=== PATIENT | male | born 1990 | race Caucasian/White ===

== ENCOUNTER 2018-03-03 17:05 | Emergency (ER) | payer SELFPAY ==
[2018-03-03 17:06] VITALS: BP 145/91; PULSE 97; RESP 17; TEMP 36.9; O2SAT 96; BMI 35.4
--- NOTE | 2018-03-03 17:23 | ED.VISSUMM ---
- ER Visit Summary Date of Service: 03/03/18 Chief Complaint: Drainage, redness left eye History of Present Illness: The patient is a 28 M who presents because of redness, drainage and irritation left eye. He was working on his car yesterday. He states just fell when he was under the car working on the brakes. There is no history of metal pounding on metal. He denies any blurred vision, loss of vision, double vision or any other symptoms. Physical Examination: Vital signs are remarkable for a blood pressure 145/91. Visual acuity is 20/25 left 20/20 right 20/20 both eyes. There is injection of the conjunctivae and sclera on the left. There is a green drainage noted. Pupils are equal round reactive. Extraocular muscles are intact. There is no abdomen of the lid, lacrimal apparatus or lashes. There is no evidence of a dacryocystitis. Slit-lamp exam was performed. The exam is limited secondary to the fact that there is a national shortage of floor seen. There is no obvious corneal abnormality. There is no photophobia to direct or consensual light. There is no hyphema, flare or cells anterior chamber. There is no pain with movement and there is no limitation of extraocular movement. Test Results: Visual acuity as documented Emergency Department Course and Treatment: Ciprofloxacin ophthalmic drop and dispensed bile Treatment Plan: Antibiotic drop and follow-up with Dr. Gavino Miramontes Disposition: Discharged to home Impression: Conjunctivitis left eye This note was generated with [employer] dictation software. It may contain incorrect words, spelling, and punctuation that were not noted in review of the chart prior to signing ED Disposition - Plan for ED Patient: Disposition: Home or Assisted Living Chief Complaint: Eye Problem Instructions: ED Conjunctivitis Bacterial Referrals: Care Physician,No Primary [Primary Care Provider] - Gavino Miramontes MD [STAFF PHYSICIAN] - 2 Days Additional Instructions: Instill 1-2 drops of ciprofloxacin ophthalmic drops every 2 hours while awake for the next 48 hours then every 4 hours while awake for the next 3-5 days
[2018-03-03] MEDS: Ciprofloxacin 0.3% 2.5ml Bottle 2 DRP LEFT EYE (17:39)
[2018-03-03 17:40] VITALS: PULSE 92; RESP 14; O2SAT 98
== END 2018-03-03 17:41 | disposition home or self-care (01) ==
PROVIDERS: Emergency Provider Emergency Medicine
DX: H10.9 Unspecified conjunctivitis (principal)
CPT/HCPCS: 99283

== ENCOUNTER 2023-09-29 20:23 | Emergency (ER) | payer OTHER, SELFPAY ==
[2023-09-29 20:23] VITALS: BP 143/100; PULSE 102; RESP 16; TEMP 36.6; O2SAT 100; BMI 43.0
--- NOTE | 2023-09-29 20:29 | EX.ED.UPPERE ---
HPI History of Present Illness Chief Complaint: Laceration Informant: patient and spouse/S.O. Narrative Narrative: [id number] presents laceration to his right hand in the webspace between third and fourth finger while work on his truck. Tetanus unknown. No significant bleeding. No anticoagulation medicines. No paresthesias or any loss of function. Tetanus Immunization: Unknown [facility] Medical History (Updated 09/29/23 @ 20:[address] Mo Rosales, DO) Hypersomnia Obesity LAQUITA (obstructive sleep apnea) Pneumonia Rheumatic fever Home Medications azithromycin 250 mg tablet See Rx Instructions PO .COMPLEX #6 tabs 07/20/23 [Rx Last Taken Unknown] Allergy/AdvReac Type Severity Reaction Status Date / Time No Known Allergies Allergy Verified 09/29/23 20:23 Family History Grandmother Diabetes Alzheimer disease Grandfather Diabetes Heart disease Surgical History [place] teeth extracted Social History Smoking Status: Never smoker Smokeless tobacco user: chewing tobacco Electronic Cigarette Use: not used second hand exposure: No alcohol intake: current alcohol intake frequency: holidays/special occasions only Alcohol type: beer and hard liquor substance use type: does not use ROS ROS ED Constitutional Constitutional ED: Denies chills, fever(s) or sweats Eyes Eyes: Denies change in vision ENT ENT ED: Denies dysphagia or sore throat Cardiovascular Cardiovascular: Denies chest pain, leg edema, palpitations or racing heartbeat Respiratory/Chest Respiratory/Chest: Denies cough, dyspnea or dyspnea on exertion Gastrointestinal Gastrointestinal: Denies abdominal pain, diarrhea, nausea or vomiting Genitourinary Genitourinary ED: Denies dysuria, hematuria or urinary frequency Musculoskeletal Musculoskeletal: Denies back pain, extremity pain or neck pain Integumentary Reports wounds; Denies rash Neurologic Neurologic: Denies headache(s), paresthesias or weakness EXAM Physical Exam Const Vital Signs: 09/29/23 20:23 Temperature 97.8 F Temperature Source Temporal Pulse Rate 102 H Respiratory Rate 16 Blood Pressure 143/100 H Blood Pressure Mean 114 Pulse Ox 100 Positive well nourished and well developed General Appearance ED: well developed and NAD HEENT Reports moist mucous membranes normocephalic and atraumatic Eyes PERRL, EOMs intact bilaterally and conjunctivae normal General Eye ED: Yes normal appearance of both eyes Neck no lymphadenopathy and supple General: Negative for tenderness Chest Wall Chest: Negative for tenderness Resp normal respiratory effort and normal air movement Effort and Inspection: symmetric chest movement; Negative for respiratory distress Cardio regular rate, regular rhythm and no murmurs Peripheral Pulses: pulses 2+ throughout GI normal to inspection, nondistended, normoactive bowel sounds and non-tender Palpation: Negative for guarding or rebound tenderness present Back/Spine no CVA tenderness and no thoracic nor lumbar tenderness Extremity Extremity Narrative: Right hand: 2 cm laceration right the webspace at the base of the middle finger, there was debris inside the wound, subcu exposure no tendon involvement. Full range of motion of the digit. There is no active bleeding. Normal sensation distally. General Extremety ED: Yes tenderness; Negative for edema General Extremity: Negative for edema Neuro oriented x3 and no sensory deficits noted Sensorium / Orientation: awake and alert Skin no rashes or lesions noted and no wounds MDM MDM MDM Narrative Medical decision making narrative: Interventions / MDM: Differential diagnosis: Hand laceration Diagnosis considered but do not suspect: Tendon injury however clinically tendon intact. My EKG interpretation: N/A Imaging independently reviewed and interpreted by myself: N/A External documents reviewed: N/A Test considered but not ordered:N/A ED course: Laceration webspace of the hand full range of motion of the digits no paresthesias. Laceration repaired wound care discussed, AlumaFoam splint splint provided to help with immobilization and healing. Dressing twice at home with the patient. Tetanus updated. All questions were answered. Procedure note: Verbal consent. Normal sterile conditions. 2 cc lidocaine 1% used for local analgesia the wound. Copious normal saline washing initial moist Q-tip to remove debris, saline with syringe was used for flushing. Total of 3, 5-0 nylon in simple interrupted sutures placed with good approximation of the wound. Antibiotic ointment and dressings placed by myself. Patient tolerated procedure well. Re-evaluation: stable Disposition discussed with patient/family/significant other: Patient and significant other. Case discussed with consulting clinician: N/A This note was generated with [employer] software. It may contain incorrect words, spelling, and punctuation that were not noted in checking the note before signing. Discharge Plan Triage Chief Complaint: Laceration ED Provider: Mo Rosales Dx/Rx/DC Orders Clinical Impression: Tetanus toxoid vaccination administered at current visit, Laceration of hand, right Instructions: ED Laceration, Hand: All Closures Prescriptions: No Action azithromycin 250 mg tablet See Rx Instructions PO .COMPLEX Qty: 6 0RF Rx Instructions: take 500 mg today (day 1), then 250 mg for 4 days (days 2-5) PO Primary Care Provider: Care Physician,No Primary Referrals: Marty Jiménez MD [Med Staff - [facility] [employer]] - 10-14 Days suture removal Care Physician,No Primary [Primary Care Provider] - Activity Restrictions/Additional Instructions: 3 sutures placed to right hand. Wound care as discussed. Use finger splint to avoid over bending to allow healing follow-up in 10 to 14 days for reevaluation and suture removal.. Disposition Disposition: Home, Self Care Discharge Date/Time: 09/29/23 21:12
[2023-09-29] MEDS: Diphth,Pertuss(Acell),Tet Vac 0.5 ML Vial IM (20:36)
[2023-09-29] MEDS: Lidocaine 1% (20 ml mdv) 20 ML Vial INFILT (20:36)
== END 2023-09-29 21:12 | disposition home or self-care (01) ==
LOC: ED 21:03
PROVIDERS: Emergency Provider Emergency Medicine; Visit Provider Emergency Medicine
DX: S61.411A Laceration without foreign body of right hand, initial encounter (principal); Y92.812 Truck as the place of occurrence of the external cause; W26.8XXA Contact with other sharp object(s), not elsewhere classified, initial encounter; Y93.89 Activity, other specified; F17.220 Nicotine dependence, chewing tobacco, uncomplicated; Z23 Encounter for immunization
CPT/HCPCS: 12001; 90471; 90715; 99284

== ENCOUNTER → 2024-12-11 | Outpatient (CLI) | payer OTHER, SELFPAY ==
--- NOTE | 2024-12-11 | VAS_PTH ---
PATIENT: JIGAR BONE LOC: [facility] U#:[id number] AGE/SX: 34/M ROOM: RE12/11/[address]: Dr. Keanu De Los Santos MD : 1990 BED: DIS: 12/11/2024 SPEC #: [id number] RECD: 12/11/24 11:45 STATUS: DYLON BRIGHT #: [id number] LELAND: 12/11/24 00:[address]: Keanu De Los Santos DEPT: SURGICAL PATHOLOGY RECD BY: Phil Guzman ENTERED: 12/11/24 12:01 SP TYPE: VAS OTHR DR: Keyonna Primary Care Phys Tissues: A - Vas deferens, NOS B - Vas deferens, NOS Procedures: Surgery Specimen Level II HEADER OPERATION: Bilateral partial vasectomy PRE-OP DIAGNOSIS: Sterilization TISSUE SUBMITTED: A- Right vas deferens, B- Left vas deferens MICROSCOPIC DIAGNOSIS A. Right vas deferens, partial vasectomy: Completely transected segment of vas deferens, no pathologic diagnosis. B. Left vas deferens, partial vasectomy: Completely transected segment of vas deferens, no pathologic diagnosis. CATHY: 12/12/2024 MICROSCOPIC DESCRIPTION Slides are reviewed. GROSS DESCRIPTION A - Received is one container designated Right vas deferens. The specimen consists of a tubular segment of le soft tissue measuring 0.6 cm in length and 0.2 cm in diameter. The specimen is sectioned and submitted entirely in one cassette. B - Received is one container designated Left vas deferens. The specimen consists of a tubular segment of le soft tissue measuring 1 cm in length and 0.2 cm in diameter. The specimen is sectioned and submitted entirely in one cassette. / SJ: 12/11/2024 TC:[address] [facility]: [id number] x2
== END | disposition home or self-care (01) ==
LOC: LABSPEC 11:49
PROVIDERS: Referring Provider Surgery; Visit Provider Surgery
DX: Z30.2 Encounter for sterilization (principal)
CPT/HCPCS: 88302

== ENCOUNTER 2025-02-16 10:06 | Outpatient (CLI) | payer OTHER, SELFPAY ==
[2025-02-16 11:17] LABS: Semen Analysis Post Vas PRELIMINARY PRESENT; Semi Quantitative RARE
[2025-02-18 13:20] LABS: Pathologist Review Reviewed
== END 2025-02-16 23:59 | disposition home or self-care (01) ==
LOC: LABSPEC 10:10
PROVIDERS: Referring Provider Surgery; Visit Provider Surgery
DX: Z30.09 Encounter for other general counseling and advice on contraception (principal)
CPT/HCPCS: 89321

== ENCOUNTER → 2025-04-09 | Outpatient (CLI) | payer OTHER, SELFPAY ==
--- OUTSIDE RECORDS SUMMARY | 2025-04-09 12:02 | XMS RPT_ITS | CCD ---
Author Organization [facility] Inform ion Partnership [facility] Care Team Providers Care Wood Heel Finisher Name Role Phone James Katelyn Maria Del Carmen Unavailable Unavailable James Katelyn Maria Del Carmen Unavailable Unavailable Fidel CEJA Attending Unavailable Care Physician, No Primary Primary Care Provider Unavailable Care Physician, No Primary Referring Provider Un available SHRUTHI Downs Attending Provider Keanu De Los Santos Attending Unavailable Care Physician, No Primary Primary Care Unava ilable Care Physician, No Primary Referring Unava ilable Keanu De Los Santos Attending Unavailable Keanu De Los Santos Referring Unavailable Care Physician, No Primary Primary Care Unava ilable Care Physician, No Primary Primary Care Unava ilable Keanu De Los Santos Attending Unavailable Keanu De Los Santos Referring Unavailable Keanu De Los Santos Attending Unavailable Care Physician, No Primary Primary Care Unava ilable Care Physician, No Primary Referring Unava ilable Keanu De Los Santos Attending Unavailable Care Physician, No Primary Primary Care Unava ilable Care Physician, No Primary Referring Unava ilable Medications Current Medications Medication Drug Class(es) Dates Sig (Normalized) Sig (Original) azithromycin 250 mg oral tablet (1 source) Macrolide Antimicrobial Start: 07-20-2023 Azithromycin Active 0 PO .COMPLEX July 19, 2023 11:00pm take 500 mg today (day 1), then 250 mg for 4 days (days 2-5) PO Completed/Discontinued Medications Medication Drug Class(es) Dates Sig (Normalized) Sig (Original) doxycycline hyclate 100 mg oral capsule (1 source) Tetracycline-cla ss Drug Start: 06-03-2016 End: 02-18-2018 take 100 mg by mouth twice daily Doxycycline Hyclate Discontinued 100 MG PO TWICE A DAY June 02, 2016 11:00pm February 18, 2018 10:19am predniSONE 10 mg oral tablet (1 source) Start: 07-20-2023 End: 08-01-2023 Prednisone Discontinued 10 MG PO daily 20 10July 19, 2023 11:00pm July 31, 2023 11:04pm Take 4 tabs once daily days 1-3 3 tabs once daily days 4-6 2 tabs once daily days 7-9 and 1 tab once daily days 10-12. Problems Active Problems Problem Classification Problem Date Documented Date Episodic/Chronic Acute bronchitis (2 sources) Acute bronchitis; Translations: [Acute bronchitis, unspecified] 07-20-2023 Episodic Administrative/social admission (1 source) Administrative reason for encounter; Translations: [Encounter for other administrative examinations] 12-08-2019 Episodic Bacterial infection; unspecified site (1 source) Rheumatic fever; Translations: [Rheumatic fever without heart involvement] 02-18-2018 Episodic Contraceptive and procreative management (2 sources) Encounter for other general counseling and advice on contraception; Translations: [Encounter for sterilization] Onset: 12-19-2024 Episodic Disorders of teeth and jaw (1 source) Loss of teeth due to extraction; Translations: [Partial loss of teeth, unspecified cause, unspecified class] 02-18-2018 Episodic E Codes: Natural/environment (1 source) Tick bite; Translations: [Bitten or stung by nonvenomous insect and other nonvenomous arthropods, initial encounter] 04-09-2022 Episodic Immunizations and screening for infectious disease (1 source) Tetanus toxoid vaccination given; Translations: [Encounter for immunization] 09-29-2023 Episodic Open wounds of extremities (1 source) Laceration of hand; Translations: [Laceration without foreign body of right hand, initial encounter] 09-29-2023 Episodic Other nutritional; endocrine; and metabolic disorders (3 sources) Obesity; Translations: [Obesity, unspecified] Onset: 10-27-2016 10-27-2016 Chronic Pneumonia (except that caused by tuberculosis or sexually transmitted disease) (1 source) Pneumonia; Translations: [Pneumonia, unspecified organism] 02-18-2018 Episodic Residual codes; unclassified (1 source) Hypersomnia; Translations: [Hypersomnia, unspecified] 02-18-2018 Chronic Unclassified (3 sources) Obstructive sleep apnea syndrome; Translations: [Obstructive sleep apnea (adult) (pediatric)] Onset: 2017 02-26-2017 Chronic Past or Other Problems Problem Classification Problem Date Documented Da te Episodic/Chronic Unclassified (2 sources) Hypersomnia; Translations: [Hypersomnia, unspecified] Onset: 10-27-2016 10-27-2016 Episodic Results Test Name Value Interpretation Reference Range Facility L200.0900on 02-18-2025 PATH REV Reviewed Normal [facility] Comment on above: Order Comment: CRIWILLIAM TRACIE VALUE CALLED TO DANIA BARNETT 02/16/25 1119 Ttaiana Barnett. RESULTS READ BACK BY SAME. Result Comment: RARE SPERMATAZOA SEEN. Jennifer Torres MD 02/18/2025 AMENDED REPORT 02/18/25 1319 PATH REV previously reported as: Will follow Performed By: #### L 200.0900 #### [facility] [address] [place], [address] Surgery Visit Reporton 12-19 Surgery Visit Report [facility] [address] [place] [address] OFFICE VISIT Date of Service: 12/19/24 MR#: [id number] Acct: [id number] Name: JIGAR BONE Rep #: [id number] : 1990 Provider: Dr. Keanu raines MD Age/Sex: 34/M Location: [facility] Status: Signed Intake Vital Signs 09/26/24 14:52 Height 5 ft 10 in Weight: 309 lb BMI 44.3 BP 126/76 H Blood Pressure Location Rt brachial Position Sitting Respiration 17 Pulse 108 H Pulse Source Monitor Pulse Oximetry (%) 95 Oxygen Delivery Method room air Intake Visit Reasons: VASECTOMY - Chief Complaint: vasectomy 12/11 Is patient in pain?: No Allergies No Known Allergies Allergy (Verified 12/19/24 14:29) Medications ???Medication ???Instructions ???Recorded ???Confirmed ???Type NK 12/19/24 12/19/24 History Subjective Details: Patient is doing well after vasectomy with no complaints Objective Details: Scrotum is healing well Coding Level of Care Code Global Post Op Diagnoses S/P vasectomy Z98.52 [facility] Medical History (Updated 12/19/24 @ 14:30 by Dania Barnett) Encounter for vasectomy counseling Rheumatic fever Pneumonia Hypersomnia Obesity LAQUITA (obstructive sleep apnea) Surgical History (Updated 12/19/24 @ 14:30 by Dania Barnett) S/P vasectomy [place] teeth extracted Family History Grandmother Diabetes Alzheimer disease Grandfather Diabetes Heart disease Social History Smoking Status: Never smoker Smokeless tobacco user: chewing tobacco Electronic Cigarette Use: not used second hand exposure: No alcohol intake: current alcohol intake frequency: holidays/special occasions only Alcohol type: beer and hard liquor substance use type: does not use Assessment and Plan (No Qualifiers) Assessment and Plan (1) S/P vasectomy: Status: Acute Plan: Patient doing well after vasectomy. I once again informed that he is not sterile yet. He will follow-up in 4 weeks for semen analysis. Keanu De Los Santos MD Pager: [facility] [address] [place] [address] Office: 12/19/24 1520 Date Keanu De Los Santos MD [facility] Signature: Date (if applicable) CC: Normal [facility] Surgery Specimen Level IIon 12-11-2024 Surgery Specimen Level II Patient Age/Sex Location Account Attending Physician JIGAR BONE 34/M LABSPEC [id number] Dr. Keanu De Los Santos MD Specimen: [id number] Received: 12/11/24 Status: DYLON Marcio Num: [id number] Spec Type: VAS Subm Dr: Dr. Keanu De Los Santos MD HEADER OPERATION: Bilateral partial vasectomy PRE-OP DIAGNOSIS: Sterilization TISSUE SUBMITTED: A- Right vas deferens, B- Left vas deferens MICROSCOPIC DIAGNOSIS A. Right vas deferens, partial vasectomy: Completely transected segment of vas deferens, no pathologic diagnosis. B. Left vas deferens, partial vasectomy: Completely transected segment of vas deferens, no pathologic diagnosis. SJ: 12/12/2024 MICROSCOPIC DESCRIPTION Slides are reviewed. GROSS DESCRIPTION A - Received is one container designated Right vas deferens. The specimen consists of a tubular segment of le soft tissue measuring 0.6 cm in length and 0.2 cm in diameter. The specimen is sectioned and submitted entirely in one cassette. B - Received is one container designated Left vas deferens. The specimen consists of a tubular segment of le soft tissue measuring 1 cm in length and 0.2 cm in diameter. The specimen is sectioned and submitted entirely in one cassette. / SJ:mr 12/11/2024 TC:4 CPT: 27285 x2 Patient Age/Sex Location Account Attending Physician JIGAR BONE 34/M LABSPEC [id number] Dr. Keanu De Los Santos MD Signed (signatur e on file) Dr. Darion Skelton MD 12/12/24 1108 Normal [facility] Comment on above: Performed By: #### P SUII #### [facility] [address] [place], [address] Surgery Visit Reporton 12-11 Surgery Visit Report [facility] [address] [place] [address] OFFICE VISIT Date of Service: 12/11/24 MR#: [id number] Acct: [id number] Name: JIGAR BONE Rep #: [id number] : 1990 Provider: Dr. Keanu raines MD Age/Sex: 34/M Location: [facility] Status: Signed Intake Vital Signs 09/26/24 14:52 Height 5 ft 10 in Weight: 309 lb BMI 44.3 BP 126/76 H Blood Pressure Location Rt brachial Position Sitting Respiration 17 Pulse 108 H Pulse Source Monitor Pulse Oximetry (%) 95 Oxygen Delivery Method room air Intake Visit Reasons: VASECTOMY Chief Complaint: vasectomy Immunopathologist Required: No Is patient in pain?: No Allergies No Known Allergies Allergy (Verified 12/11/24 08:16) Medications ???Medication ???Instructions ???Recorded ???Confirmed ???Type oxycodone 5 mg tablet 5 mg PO Q4H PRN pain 3 days #7 tab s 12/11/24 12/11/24 Rx Have you fallen in the past year?: No PFSH Medical History Rheumatic fever Pneumonia Hypersomnia Obesity LAQUITA (obstructive sleep apnea) Surgical History [place] teeth extracted Family History Grandmother Diabetes Alzheimer disease Grandfather Diabetes Heart disease Social History Smoking Status: Never smoker Smokeless tobacco user: chewing tobacco Electronic Cigarette Use: not used second hand exposure: No alcohol intake: current alcohol intake frequency: holidays/special occasions only Alcohol type: beer and hard liquor substance use type: does not use HPI HPI HPI: Patient is a 34-year-old male here for vasectomy for sterilization. This was discussed during his prior visit. Exam Const General: cooperative Orientation: alert and oriented x3 HENMT Head: normal to inspection Neck Neck: normal visual inspection and full ROM Chest Chest palpation inspection: normal inspection of the chest Resp Effort Inspection: normal respiratory effort Auscultation: clear to auscultation bilaterally Cardio Rate: regular rate Rhythm: regular rhythm GI Inspection: non-distended Palpation: soft and nontender Skin General: no rashes or lesions noted Neuro General: patient alert and patient oriented x3 Extrem General: full ROM Psych Appearance: grossly normal Mental Status: mental status grossly normal Office Procedures Procedure Time Out Time Out Informed consent given: Yes Consent signed: Yes Time out checklist: patient, procedure, site marked/identified, positioning of patient, supplies available, allergies confirmed and team agrees on procedure Time out staff in room: Yes Time out verified: Yes Time out date: 12/11/24 Time out time: 08:03 Vasectomy Provider Documentation Provider Documentation: Bilateral partial vasectomy Time out and informed consent was obtained. The patient was taken to the procedure room and placed supine on the table. Bilateral scrotal areas were clipper and Betadine prepped. 1% lidocaine mixed 50-50 with 0.5% Marcaine was utilized as a local anesthetic. Less than a total of 10 cc was utilized. Bilateral scrotal incisions were created. Sharp and blunt dissection was used to identify the vas deferens. A segment was cleared, the ends were crushed, and segments were excised. The ends were secured with 3-0 chromic inverted and resecured. The skin edges were approximated with simple sutures of 3-0 chromic. Topical antibiotic ointment and gauze applied. He was given activity and wound care instructions. The specimens are submitted in formalin for analysis. He is scheduled to return to my office in 1 week's time. He has been provided analgesics as prescribed. He is well aware that he has not yet cleared from utilizing other means of control. He is aware that 2 negative consecutive semen counts will be required prior to releasing him from utilizing other means of control. He is aware that this is his responsibility to complete. He has had an opportunity to ask and have questions answered. Blood loss minimal. Specimens segments of vas deferens. Complications none. Alert Neri Alert Billing: Yes Vasectomy [id number] Vasectomy Assessment and Plan Assessment and Plan (1) Encounter for vasectomy counseling: Status: Acute Plan: Patient had vasectomy in the office today. He tolerated procedure well. I was once again informing him that he is not sterile yet. He will follow-up in 1 week for postoperative visit. Postoperative instructions were given. Keanu De Los Santos MD Pager: [facility] [address] [place] [address] Outpatient Monica Wallace (more content not included)... Normal [facility] Surgery Visit Reporton 09-26 Surgery Visit Report [facility] [address] [place] [address]. [address] [place] [address] OFFICE VISIT Date of Service: 09/26/24 MR#: [id number] Acct: [id number] Name: JIGAR BONE Rep #: [id number] : 1990 Provider: Dr. Keanu raines MD Age/Sex: 34/M Location: [facility] Status: Signed Intake Vital Signs 09/29/23 20:23 09/26/24 14:52 Height 5 ft 10 in 5 ft 10 in Weight: 309 lb BMI 44.3 BP 126/76 H Blood Pressure Location Rt brachial Position Sitting Respiration 17 Pulse 108 H Pulse Source Monitor Pulse Oximetry (%) 95 Oxygen Delivery Method room air Intake Visit Reasons: SELF REFERRED VASECTOMY Chief Complaint: self referred vasectomy Allergies No Known Allergies Allergy (Verified 09/26/24 14:53) [facility] Medical History (Updated 09/26/24 @ 14:51 by Dania Barnett) Rheumatic fever Pneumonia Hypersomnia Obesity LAQUITA (obstructive sleep apnea) Surgical History [place] teeth extracted Family History Grandmother Diabetes Alzheimer disease Grandfather Diabetes Heart disease Social History Smoking Status: Never smoker Smokeless tobacco user: chewing tobacco Electronic Cigarette Use: not used second hand exposure: No alcohol intake: current alcohol intake frequency: holidays/special occasions only Alcohol type: beer and hard liquor substance use type: does not use HPI HPI HPI: They are here requesting sterilization.Patijamar barr is a 34-year-old male here for vasectomy. His accompanied him to the visit. They are both on board. ROS General General: No weight change, appetite, fatigue, colon cancer, breast cancer or weakness HEENT HEENT: No difficulty swallowing, eye injury, eye surgery, swollen glands or hoarseness Endo Endocrine: No thyroid disease, diabetes mellitus, thyroid cancer, Hair loss, heat intolerance or cold intolerance Skin Skin: No rash or changing moles Musc Musculoskeletal: No back problems, arthritis, rheumatoid arthritis, gout or joint pain Cardio Cardiovascular: No murmur, pacemaker, heart disease, atrial fibrillation, high blood pressure, heart attack, heart stent, palpitations, shortness of breat with exertion or chest pain Psych Psychiatric: No depression, anxiety or hearing voices Resp Respiratory: No shortness of breath, Yes sleep apnea, No cough, No COPD, No asthma, No emphysema and No wheezing Gastro Gastrointestinal: No abdominal pain, No nausea or vomiting, No diarrhea, No constipation, No blood in stool, No acid reflux, No hemorrhoids, No ulcers, No gallbladder problem and No black,tarry stools Kobi Hematologic: No blood thinners, No blood disorders, No bleeding, No anemia and No blood clots Neuro Neurologic: No system reviewed and no additional complaints, except as documented, No as per HPI, No abnormal gait, No abnormal hearing, No abnormal movements, No abnormal speech, No behavioral changes, No burning sensations, No confusion, No convulsions, No disequilibrium, No dizziness, No localized weakness, No frequent falls, No headache(s), No lack of coordination, No loss of vision, No memory loss, No numbness, No other visual disturbances, No radicular pain, No restless legs, No sensory deficit, No syncope, No tingling, No tremor(s), No weakness and No other Exam Const General: cooperative Orientation: alert and oriented x3 HENMT Head: normal to inspection Neck Neck: normal visual inspection and full ROM Chest Chest palpation inspection: normal inspection of the chest Resp Effort Inspection: normal respiratory effort Auscultation: clear to auscultation bilaterally Cardio Rate: regular rate Rhythm: regular rhythm GI Inspection: non-distended Palpation: soft and nontender Skin General: no rashes or lesions noted Neuro General: patient alert and patient oriented x3 Extrem General: full ROM Psych Appearance: grossly normal Mental Status: mental status grossly normal Assessment and Plan Assessment and Plan (1) Encounter for vasectomy counseling: Status: Acute Plan: I discussed bilateral partial vasectomy with the patient in detail. I discussed the procedure in detail as well as the risks of the procedure. I discussed the risks including but not limited to bleeding, infection, injury to spermatic cord, spermatocele. I discussed that this procedure is not perfect and there was a very small failure rate and I also discussed that this is a nonreversible procedure and that he would not be immediately sterile. I discussed that he would be considered sterile after two consecutive negative semen analysis tests. I recommended that the patient continue to use co (more content not included)... Normal [facility] [place]enton 03-23-2023 Consent [id number]#1.00CD:127 [facility] Registrationon 03-23-2023 Registration [id number]#1.00CD:127 [facility] In office Testingon 12-28-19 23 In office Testing [id number]#1.00CD:127 [facility] Office Visit: OSAon 02-24-20 17 Documentation of current medications (procedure) Done Invalid Interpretation Code [facility] Work Phone: Documentation of current medications (procedure) T Invalid Interpretation Code [facility] Work Phone: Tobacco smoking status NHIS Current Invalid Interpretation Code [facility] Work Phone: Tobacco use HS Never smoker Invalid Interpretation Code [facility] Work Phone: Vital Signs Date Time Vital Sign Value Performing Clinician Facility 09-29-2023 20:23-0500 Body height 177.8 cm No Primary Care Physician [facility] 09-29-2023 20:23-0500 Body mass index (BMI) [Ratio] 43 kg/m2 No Primary Care Physician [facility] 09-29-2023 20:23-0500 Body temperature 97.8 [degF] No Primary Care Physician [facility] 09-29-2023 20:23-0500 Body weight 136.07 kg No Primary Care Physician [facility] 09-29-2023 20:23-0500 Diastolic blood pressure 100 mm[Hg] No Primary Care Physician [facility] 09-29-2023 20:23-0500 Heart rate 102 /min No Primary Care Physician [facility] 09-29-2023 20:23-0500 Respiratory rate 16 /min No Primary Care Physician [facility] 09-29-2023 20:23-0500 SaO2% (BldA) [Mass fraction] 100 % No Primary Care Physician [facility] 09-29-2023 20:23-0500 Systolic blood pressure 143 mm[Hg] No Primary Care Physician [facility] 07-20-2023 11:33-0400 Body mass index (BMI) [Ratio] 43 kg/m2 No Primary Care Physician [facility] 07-20-2023 11:33-0400 Body weight 136.07 kg No Primary Care Physician [facility] 07-20-2023 11:33-0400 Diastolic blood pressure 92 mm[Hg] No Primary Care Physician [facility] 07-20-2023 11:33-0400 Heart rate 81 /min No Primary Care Physician [facility] 07-20-2023 11:33-0400 Respiratory rate 16 /min No Primary Care Physician [facility] 07-20-2023 11:33-0400 SaO2% (BldA) [Mass fraction] 94 % No Primary Care Physician [facility] 07-20-2023 11:33-0400 Systolic blood pressure 137 mm[Hg] No Primary Care Physician [facility] 2017 14:26-0400 BMI (Body Mass Index) 37.3 kg/m2 Katelyn Ramirez [facility] Work Phone: 2017 14:26-0400 Body Temperature 98 [degF] Katelyn Ramirez [facility] Work Phone: 2017 14:26-0400 BP Diastolic 93 mm[Hg] Katelyn York [facility] Work Phone: 2017 14:26-0400 BP Systolic 131 mm[Hg] Katelyn James [facility] Work Phone: 2017 14:26-0400 Height 177.8 cm Katelyn Kaola100 [facility] Work Phone: 2017 14:26-0400 Pulse (Heart Rate) 68 /min Katelyn [id number] [facility] Work Phone: 2017 14:26-0400 Pulse Oximetry 98 % Katelyn Kaola100 [facility] Work Phone: 2017 14:26-0400 Respiratory Rate 18 /min Katelyn [email or web address] [facility] Work Phone: 2017 14:26-0400 Weight 117.94 kg Katelyn [email or web address] [facility] Work Phone: 10-27-2016 14:48-0500 Body Temperature 98.24 [degF] Katelyn Kaola100 [facility] Work Phone: 10-27-2016 14:48-0500 BSA (Body Surface Area) 2.37 m2 Katelyn [email or web address] [facility] Work Phone: 10-27-2016 14:48-0500 Height 177.8 cm Katelyn [email or web address] [facility] Work Phone: 10-27-2016 14:48-0500 Weight 121.82 kg Katelyn Kaola100 [facility] Work Phone: Encounters Encounter Date Encounter Type Care Provider Facility Start: 02-18-2025 Encounter for genera l adult medical examination without abnormal findings Keanu De Los Santos [facility] Start: 02-16-2025 End: 02-16-2025 ambulatory No Primary Care Physician Facility:[facility] Start: 12-19-2024 End: 12-19-2024 ambulatory Keanu De Los Santos Facility:[facility] Start: 12-11-2024 End: 12-11-2024 ambulatory Keanu Kandacethayne [facility] Start: 12-11-2024 End: 12-11-2024 ambulatory [facility] Facility:[facility] Start: 09-26-2024 End: 09-26-2024 ambulatory [facility] Facility:[facility] Start: 09-29-2023 End: 09-29-2023 Emergency department patient visit No Primary Care Physician [facility] Work Phone: Start: 07-20-2023 End: 07-20-2023 Patient encounter procedure No Primary Care Physician [facility] Work Phone: Start: 03-23-2023 End: 03-24-2023 ambulatory Fidel CEJA Facility:[facility] Procedures Date Procedure Procedure Detail Performing Clinician Start: 10-27-2016 End: 11-10-2016 DELLA Vasquez WATER PURIFIER OPERATOR Work Phone: Start: 10-27-2016 End: 11-10-2016 Complete portable sleep workup (portable,CPAP as indicated) & follow up Kay Loredo CNP Work Phone: Start: 10-27-2016 End: 11-10-2016 Complete sleep workup (PSG,CPAP as indicated) & Follow up Kay Loredo CNP Work Phone: Start: 10-27-2016 End: 11-10-2016 Follow Up Appt 3 months Kay delong INVESTMENT ANALYST Work Phone: Plan of Treatment Date Care Activity Detail Author Start: 09-29-2023 [facility] Start: 2017 End: 2017 [facility] Work Phone: Start: 2017 End: 2017 Follow Up Appt 1 year Follow Up Appt 1 year [facility] Work Phone: Start: 10-27-2016 End: 11-10-2016 Abrahan HULL [facility] Work Phone: Start: 10-27-2016 End: 11-10-2016 Complete portable sleep workup (portable,CPAP as indicated) & follow up Complete portable sleep workup (portable,CPAP as indicated) & follow up [facility] Phone: Start: 10-27-2016 End: 11-10-2016 Complete sleep workup (PSG,CPAP as indicated) & Follow up Complete sleep workup (PSG,CPAP as indicated) & Follow up [facility] Work Phone: Start: 10-27-2016 End: 11-10-2016 Follow Up Appt 3 months Follow Up Appt 3 months [facility] Work Phone: Patient Education ED Lac[place], Hand: All Closures [facility] Work Phone: Patient referral [facility] Work Phone: Immunizations Immunization Date Immunization Notes Care Provider Fa cility 09-29-2023 tetanus toxoid, redu snehal diphtheria toxoid, and acellular pertussis vaccine, adsorbed No Primary Care Physician [facility] Payers Date Payer Category Payer Unknown [id number] 2024 Self-pay [id number] [facility] 2024 Unknown [id number] Private Health Insurance [facility] A00 [id number] Unknown [facility] [id number] Unknown [id number] Unknown [id number] Unknown [id number] Unknown [id number] Social History Date Type Detail Facility Start: 09-29-2023 Tobacco smoking stat us [facility] Unknown if ever smoked [facility] Start: 1990 Sex Assigned At Male [facility] Hospital Discharge instructions 09-29-2023 Note Date & Type Note Facility 09-29-2023 Hospital Discharg e instructions Additional Instructions 3 sutures placed to right hand. Wound care as discussed. Use finger splint to avoid over bending to allow healing follow-up in 10 to 14 days for reevaluation and suture removal.. [facility] Work Phone: Evaluation note Note Date & Type Note Facility Evaluation note Diagnosis Onset Date Acute bronchitis acute [facility] Work Phone: Summary Purpose Family History No Family History Records Found Relationship Condition Age at Onset Recorded Date/T [place] grandmother Diabetes mellitus Unknown Alzheimer's disease Unknown grandfather Diabetes mellitus Unknown Cardiac disease Unknown Advance Directives No Advanced Directives Records Found Advance Directive Response Recorded Date/ Time Living Will No September 29 8:38pm Power of Local Telephone Operator No September 29, 2023 8:38pm Chief Complaint and Reason for Visit Chief Complaint Cough LAC TO R HAND Reason for Visit Acute bronchitis Additional Source Comments (unrecognized sect ion and content) No Status Records FoundNo Status Records Found INFORMATION SOURCE (unrecogn ized section and content) DATE CREATED AUTHOR 03/31/2023 George Stratasan [facility] DATE CREATED AUTHOR AUTHOR'S KARINA ATION 2025 [facility] Care Teams (unrecognized sec tion and content) Team Status: Active Member Role Status Dates No Primary Care Physician Family Provider Active No Primary Care Physician Primary Care Provider Active Team Status: Inactive Member Role Status Dates No Primary Care Physician Primary Care Provider, Refer ring Provider Active Altaf HAWKINS, PA Attending Provider Active Team Status: Inactive Member Role Status Dates No Primary Care Physician Primary Care Provider Active Dr. Mo Rosales , DO Emergency Provider Active Goals (unrecognized section and content) Goals may be documented in a n alternate section FOR RECORDS PERTAINING TO PATIENTS WHO ARE OR HAVE BEEN ENROLLED IN A CHEMICAL DEPENDENCY/SUBSTANCEABUSE PROGRAM, SOME INFORMATION MAY BE OMITTED. This clinical summary was aggregated from multiple sources. Caution should be exercised in using it in the provision of clinical care. This summary normalizes information from multiple sources, and as a consequence, information in this document may materially change the coding, format and clinical context of patient data. In addition, data may be omitted in some cases. CLINICAL DECISIONS SHOULD BE BASED ON THE PRIMARY CLINICAL RECORDS. [facility]. provides no warranty or guarantee of the accuracy or completeness of information in this document.
== END | disposition home or self-care (01) ==
PROVIDERS: Referring Provider Surgery; Visit Provider Surgery
DX: Z30.09 Encounter for other general counseling and advice on contraception (principal)